=== PATIENT | male | born 1960 | race Caucasian/White ===

== ENCOUNTER 2016-10-04 10:35 | Emergency (ER) | payer BC, OTHER ==
[~2016-10-04] VITALS: Ht 172.7 cm; Wt 113.4 kg
[2016-10-04] MEDS ORDERED: LISI20TA3 PO (10:47)
[2016-10-04] MEDS ORDERED: ATOR1TAB19 PO (10:47)
--- NOTE | 2016-10-04 11:46 | REP ---
RIGHT TIB/FIB SERIES: Four views. HISTORY: Right lower extremity pain. FINDINGS: AP and lateral views of the right tibia and fibula demonstrate plantar and Achilles calcaneal spurring. There are two ossific densities at the posterior joint line at the knee on the lateral radiograph. One of these may be fabella. Question loose body. There is tibiofemoral osteoarthritis and patellofemoral osteoarthritis. There is also some dystrophic soft-tissue calcification at mid calf level medially. No acute bony lesion is seen. IMPRESSION: Question loose body at the knee. Knee joint osteoarthritis. Dystrophic calcification in the medial calf soft tissues. No acute bony abnormality. Signed by Phil Harvey MD 10/04/2016 01:00 P
--- NOTE | 2016-10-04 11:54 | REP ---
Right lower extremity Duplex Doppler venous ultrasound: Real time compression and duplex Doppler interrogation of the right lower extremity deep venous system is performed. The right common femoral, superficial femoral and popliteal veins are fully compressible with transducer pressure and demonstrate normal spontaneous and phasic flow, without evidence of deep venous thrombosis. Impression: No evidence of deep venous thrombosis of the right lower extremity femoral popliteal venous system. Signed by Deon Koch MD 10/04/2016 11:45 A
[2016-10-04] MEDS ORDERED: TYLE325T5 PO (12:12)
[2016-10-04 12:30] VITALS: BP 148/67
== END 2016-10-04 12:36 | disposition home or self-care (01) ==
LOC: M ED 11:14
DX: M17.11 Unilateral primary osteoarthritis, right knee (principal); I10 Essential (primary) hypertension; E78.5 Hyperlipidemia, unspecified; Z79.899 Other long term (current) drug therapy; Z91.011 Allergy to milk products

== ENCOUNTER → 2019-03-09 | Outpatient (REF) | payer OTHER ==
[~2019-03-09] MED LIST: ATOR1TAB19 PO; LISI20TA20 PO; TYLE325T5 PO
[2019-03-09 17:29] LABS: BASO % 0.4 % (0.0-1.0); EOS # 0.1 10^3/uL (0.0-0.5); EOS % 1.9 % (0.0-3.0); HEMATOCRIT 41.9 % (42.0-52.0); HEMOGLOBIN 13.9 g/dl (13.5-17.5); LYMPH # 1.6 10^3/uL (1.5-5.0); LYMPH % 30.5 % (24.0-44.0); MEAN CORPUSCULAR HGB CONC 33.2 g/dl (32.0-36.5); MEAN CORPUSCULAR VOLUME 90.5 fl (80.0-96.0); MONO # 0.4 10^3/uL (0.0-0.8); MONO % 7.6 % (0.0-5.0); NEUTROPHILS # 3.2 10^3/uL (1.5-8.5); NEUTROPHILS % 59.4 % (36.0-66.0); PLATELET COUNT, AUTOMATED 188 10^3/uL (150-450); RED BLOOD COUNT 4.63 10^6/uL (4.30-6.10); WHITE BLOOD COUNT 5.4 10^3/uL (4.0-10.0)
[2019-03-09 17:47] LABS: ALBUMIN 3.5 GM/DL (3.2-5.2); ALT/SGPT 43 U/L (12-78); BILIRUBIN,TOTAL 0.7 MG/DL (0.2-1.0); BLOOD UREA NITROGEN 11 MG/DL (7-18); CALCIUM LEVEL 8.6 MG/DL (8.8-10.2); CARBON DIOXIDE LEVEL 30 MEQ/L (21-32); CHLORIDE LEVEL 106 MEQ/L (98-107); CHOLESTEROL LEVEL 119 MG/DL (<200); CHOLESTEROL RISK RATIO 2.704 (<5); GLOMERULAR FILTRATION RATE > 60.0 (>49); GLUCOSE, FASTING 175 MG/DL (70-100); HDL CHOLESTEROL 44 MG/DL (>40); LDL CHOLESTEROL 61 MG/DL (<100); NON-HDL-C 75 MG/DL; SODIUM LEVEL 141 MEQ/L (136-145); THYROID STIMULATING HORMONE 0.699 uIU/ML (0.358-3.740); TOTAL PROTEIN 6.7 GM/DL (6.4-8.2); TRIGLYCERIDES LEVEL 71 MG/DL (<150)
[2019-03-09 18:06] LABS: MALB URINE SIEMENS 20.7 MG/L
== END ==
LOC: M SFHCLERA 10:04
PROVIDERS: ATTEND Family Medicine
DX: E11.9 Type 2 diabetes mellitus without complications (principal)

== ENCOUNTER → 2019-09-21 | Outpatient (REF) | payer OTHER ==
[2019-09-21 13:22] LABS: BASO % 0.5 % (0.0-1.0); EOS # 0.2 10^3/uL (0.0-0.5); EOS % 2.8 % (0.0-3.0); HEMATOCRIT 42.9 % (42.0-52.0); HEMOGLOBIN 14.7 g/dl (13.5-17.5); LYMPH # 1.6 10^3/uL (1.5-5.0); LYMPH % 26.2 % (24.0-44.0); MEAN CORPUSCULAR HEMOGLOBIN 30.4 pg (27.0-33.0); MEAN CORPUSCULAR HGB CONC 34.3 g/dl (32.0-36.5); MEAN CORPUSCULAR VOLUME 88.8 fl (80.0-96.0); MONO # 0.4 10^3/uL (0.0-0.8); MONO % 7.2 % (0.0-5.0); NEUTROPHILS # 3.8 10^3/uL (1.5-8.5); NEUTROPHILS % 63.1 % (36.0-66.0); PLATELET COUNT, AUTOMATED 211 10^3/uL (150-450); RED BLOOD COUNT 4.83 10^6/uL (4.30-6.10); WHITE BLOOD COUNT 6.1 10^3/uL (4.0-10.0)
[2019-09-21 13:36] LABS: BLOOD UREA NITROGEN 14 MG/DL (7-18); CALCIUM LEVEL 8.8 MG/DL (8.8-10.2); CARBON DIOXIDE LEVEL 29 MEQ/L (21-32); CHLORIDE LEVEL 105 MEQ/L (98-107); CHOLESTEROL LEVEL 200 MG/DL (<200); CHOLESTEROL RISK RATIO 4.545 (<5); CREATININE FOR GFR 0.85 MG/DL (0.70-1.30); GLOMERULAR FILTRATION RATE > 60.0 (>49); GLUCOSE, FASTING 280 MG/DL (70-100); HDL CHOLESTEROL 44 MG/DL (>40); LDL CHOLESTEROL 133 MG/DL (<100); NON-HDL-C 156 MG/DL; POTASSIUM SERUM 4.1 MEQ/L (3.5-5.1); SODIUM LEVEL 140 MEQ/L (136-145); TRIGLYCERIDES LEVEL 115 MG/DL (<150)
[2019-09-21 15:26] LABS: HEMOGLOBIN A1c 8.5 %
== END ==
LOC: M SFHCLERA 10:05
PROVIDERS: ATTEND Family Medicine
DX: E11.9 Type 2 diabetes mellitus without complications (principal); I10 Essential (primary) hypertension; E78.5 Hyperlipidemia, unspecified

== ENCOUNTER → 2019-09-21 | Outpatient (CLI) | payer OTHER ==
--- NOTE | 2019-09-21 11:02 | REPPI ---
LUMBAR SPINE SERIES: FIVE VIEWS. HISTORY: Lumbago. Sciatica. FINDINGS: Lumbar vertebral body heights are preserved. There is diffuse degenerative disc disease with narrowing and discogenic spurring. This is most pronounced at L2-3 but present at each lumbar level. There is no evidence of spondylolysis or spondylolisthesis. There is osteoarthritic facet hypertrophy and sclerosis bilaterally at L5-S1 and to a lesser extent at L4-5. Psoas margins are symmetric. Pedicles and posterior elements are intact. Sacrum and SI joints are unremarkable. There is mild gaseous distension of the colon. IMPRESSION: Degenerative spondylosis changes. No acute bony abnormality. Electronically Signed by Phil Harvey MD 09/21/2019 04:15 P
== END ==
LOC: M PLAIMG 10:02
PROVIDERS: ATTEND Family Medicine
DX: M54.41 Lumbago with sciatica, right side (principal); M47.816 Spondylosis without myelopathy or radiculopathy, lumbar region

== ENCOUNTER → 2020-04-23 | Outpatient (CLI) | payer OTHER ==
[2020-04-23 19:45] LABS: BLOOD UREA NITROGEN 13 MG/DL (7-18); CALCIUM LEVEL 8.7 MG/DL (8.8-10.2); CARBON DIOXIDE LEVEL 31 MEQ/L (21-32); CHLORIDE LEVEL 103 MEQ/L (98-107); CREATININE FOR GFR 0.89 MG/DL (0.70-1.30); GLOMERULAR FILTRATION RATE > 60.0 (>49); GLUCOSE, FASTING 316 MG/DL (70-100); POTASSIUM SERUM 3.9 MEQ/L (3.5-5.1); SODIUM LEVEL 140 MEQ/L (136-145)
== END ==
LOC: M WUC 17:52
PROVIDERS: ATTEND Family Medicine
DX: E11.9 Type 2 diabetes mellitus without complications (principal)

== ENCOUNTER → 2020-08-25 | Outpatient (CLI) | payer OTHER ==
[2020-08-25 11:48] LABS: BLOOD UREA NITROGEN 14 MG/DL (7-18); CALCIUM LEVEL 9.4 MG/DL (8.8-10.2); CARBON DIOXIDE LEVEL 30 MEQ/L (21-32); CHLORIDE LEVEL 102 MEQ/L (98-107); CHOLESTEROL LEVEL 198 MG/DL (<200); CHOLESTEROL RISK RATIO 4.304 (<5); CREATININE FOR GFR 0.81 MG/DL (0.70-1.30); GLOMERULAR FILTRATION RATE > 60.0 (>49); GLUCOSE, FASTING 295 MG/DL (70-100); HDL CHOLESTEROL 46 MG/DL (>40); LDL CHOLESTEROL 112 MG/DL (<100); NON-HDL-C 152 MG/DL; POTASSIUM SERUM 4.2 MEQ/L (3.5-5.1); SODIUM LEVEL 138 MEQ/L (136-145); TRIGLYCERIDES LEVEL 199 MG/DL (<150)
[2020-08-25 11:56] LABS: CREATININE, URINE 66.7 MG/DL; MALB URINE SIEMENS 5.6 MG/L; MAU/CREAT RATIO 8.3 MCG/MG (0.0-30.0)
[2020-08-25 12:07] LABS: HEMOGLOBIN A1c 10.9 %
== END ==
LOC: M WUC 08:19
PROVIDERS: ATTEND Family Medicine
DX: E11.9 Type 2 diabetes mellitus without complications (principal)

== ENCOUNTER → 2021-01-05 | Outpatient (CLI) | payer OTHER ==
[2021-01-05 13:05] LABS: BLOOD UREA NITROGEN 11 MG/DL (7-18); CALCIUM LEVEL 9.1 MG/DL (8.8-10.2); CARBON DIOXIDE LEVEL 31 MEQ/L (21-32); CHLORIDE LEVEL 104 MEQ/L (98-107); CREATININE FOR GFR 0.83 MG/DL (0.70-1.30); GLOMERULAR FILTRATION RATE > 60.0 (>49); GLUCOSE, FASTING 278 MG/DL (70-100); POTASSIUM SERUM 4.2 MEQ/L (3.5-5.1); SODIUM LEVEL 140 MEQ/L (136-145)
[2021-01-05 13:40] LABS: HEMOGLOBIN A1c 9.6 %
== END ==
LOC: M WUC 09:44
PROVIDERS: ATTEND Family Medicine
DX: E11.9 Type 2 diabetes mellitus without complications (principal)

== ENCOUNTER → 2021-12-09 | Outpatient (CLI) | payer OTHER ==
[~2021-12-09] MED LIST changes: -LISI20TA20 PO; +LISI20TA37 PO
[2021-12-09 11:04] LABS: BLOOD UREA NITROGEN 13 MG/DL (7-18); CALCIUM LEVEL 9.2 MG/DL (8.8-10.2); CARBON DIOXIDE LEVEL 32 MEQ/L (21-32); CHLORIDE LEVEL 104 MEQ/L (98-107); CHOLESTEROL LEVEL 176 MG/DL (<200); CHOLESTEROL RISK RATIO 4.292 (<5); CREATININE FOR GFR 0.77 MG/DL (0.70-1.30); GLOMERULAR FILTRATION RATE > 60.0 (>49); GLUCOSE, FASTING 219 MG/DL (70-100); HDL CHOLESTEROL 41 MG/DL (>40); LDL CHOLESTEROL 113 MG/DL (<100); NON-HDL-C 135 MG/DL; POTASSIUM SERUM 4.1 MEQ/L (3.5-5.1); SODIUM LEVEL 140 MEQ/L (136-145); TRIGLYCERIDES LEVEL 111 MG/DL (<150)
[2021-12-09 11:29] LABS: CREATININE, URINE 58.3 MG/DL; CREATININE,RANDOM URINE 58.3 MG/DL; MALB URINE SIEMENS 27.7 MG/L; MAU/CREAT RATIO 47.5 MCG/MG (0.0-30.0)
[2021-12-09 16:56] LABS: HEMOGLOBIN A1c 9.7 %
== END ==
LOC: M WUC 08:37
PROVIDERS: ATTEND Family Medicine
DX: E11.9 Type 2 diabetes mellitus without complications (principal); E78.5 Hyperlipidemia, unspecified

== ENCOUNTER → 2022-10-11 | Outpatient (CLI) | payer OTHER ==
[2022-10-11 11:23] LABS: HEMOGLOBIN A1c 11.1 % (4.0-6.0)
[2022-10-11 11:32] LABS: CREATININE, URINE 54.2 MG/DL
[2022-10-11 11:41] LABS: ALBUMIN 3.6 G/DL (3.2-5.2); ALKALINE PHOSPHATASE 92 U/L (46-116); ALT/SGPT 32 U/L (7.0-40); AST/SGOT 15 U/L (<34); BILIRUBIN,TOTAL 0.7 MG/DL (0.3-1.2); BLOOD UREA NITROGEN 13 MG/DL (9-23); CALCIUM LEVEL 8.9 MG/DL (8.3-10.6); CARBON DIOXIDE LEVEL 30 MMOL/L (20-31); CHLORIDE LEVEL 102 MMOL/L (98-107); CHOLESTEROL LEVEL 193 MG/DL (<200); CHOLESTEROL RISK RATIO 5.03 (<5); CREATININE FOR GFR 0.72 MG/DL (0.70-1.30); GLOMERULAR FILTRATION RATE > 60.0 (>49); GLUCOSE, FASTING 350 MG/DL (74-106); HDL CHOLESTEROL 38.3 MG/DL (>40); LDL CHOLESTEROL 126.5 MG/DL (<100); NON-HDL-C 154.7 MG/DL; POTASSIUM SERUM 4.2 MMOL/L (3.5-5.1); SODIUM LEVEL 137 MMOL/L (136-145); TOTAL PROTEIN 6.5 G/DL (5.7-8.2); TRIGLYCERIDES LEVEL 141 MG/DL (<150)
== END ==
LOC: M WUC 08:41
PROVIDERS: ATTEND Family Medicine
DX: E11.9 Type 2 diabetes mellitus without complications (principal); E78.5 Hyperlipidemia, unspecified

== ENCOUNTER → 2023-05-05 | Outpatient (CLI) | payer OTHER ==
[2023-05-05 17:42] LABS: ALBUMIN 3.7 G/DL (3.2-5.2); ALKALINE PHOSPHATASE 73 U/L (46-116); ALT/SGPT 32 U/L (7.0-40); AST/SGOT 18 U/L (<34); BILIRUBIN,TOTAL 0.6 MG/DL (0.3-1.2); BLOOD UREA NITROGEN 14 MG/DL (9-23); CARBON DIOXIDE LEVEL 30 MMOL/L (20-31); CHLORIDE LEVEL 104 MMOL/L (98-107); CREATININE FOR GFR 0.72 MG/DL (0.70-1.30); GLOMERULAR FILTRATION RATE > 60.0 (>49); GLUCOSE, FASTING 291 MG/DL (74-106); POTASSIUM SERUM 4.2 MMOL/L (3.5-5.1); SODIUM LEVEL 140 MMOL/L (136-145); TOTAL PROTEIN 6.7 G/DL (5.7-8.2)
[2023-05-05 17:43] LABS: HEMOGLOBIN A1c 10.4 % (4.0-6.0)
== END ==
LOC: M WUC 11:02
PROVIDERS: ATTEND Family Medicine
DX: E11.65 Type 2 diabetes mellitus with hyperglycemia (principal)

== ENCOUNTER 2023-09-26 20:45 | Inpatient (IN) | payer MEDICARE, OTHER ==
[~2023-09-26] VITALS: Ht 180.3 cm; Wt 104.1 kg
[2023-09-26] MEDS: ONDANSETRON 4MG 2ML VIAL IV ONE (21:53)
[2023-09-26] MEDS: ACETAMINOPHEN *IV* 1,000 MG in IV 1 EA IV ONE (21:53)
[2023-09-26] MEDS: NS 1,000 ML IV ONE (21:53)
[2023-09-26 22:00] LABS: VENOUS BASE EXCESS 1.7 (-2.0-2.0); VENOUS HCO3 24.4 MMOL/L (23.0-27.0); VENOUS O2 SATURATION 85.1 % (60.0-80.0); VENOUS PARTIAL PRESSURE CO2 32.7 mmHg (38.0-50.0); VENOUS PARTIAL PRESSURE O2 43.8 mmHg (30.0-50.0); VENOUS STANDARD HCO3 25.6 MMOL/L; VENOUS TOTAL CO2 25.4 MMOL/L (24.0-28.0)
[2023-09-26 22:07] LABS: BASO % 0.3 % (0.0-1.0); HEMATOCRIT 41.2 % (42.0-52.0); HEMOGLOBIN 14.2 g/dl (13.5-17.5); LYMPH # 0.2 10^3/uL (1.5-5.0); LYMPH % 1.4 % (24.0-44.0); MEAN CORPUSCULAR HEMOGLOBIN 29.5 pg (27.0-33.0); MEAN CORPUSCULAR HGB CONC 34.5 g/dl (32.0-36.5); MEAN CORPUSCULAR VOLUME 85.7 fl (80.0-96.0); MONO # 0.3 10^3/uL (0.0-0.8); MONO % 2.1 % (2.0-8.0); NEUTROPHILS # 11.3 10^3/uL (1.5-8.5); NEUTROPHILS % 95.6 % (36.0-66.0); PLATELET COUNT, AUTOMATED 159 10^3/uL (150-450); RED BLOOD COUNT 4.81 10^6/uL (4.30-6.10); WHITE BLOOD COUNT 11.9 10^3/uL (4.0-10.0)
[2023-09-26 22:31] LABS: LIPASE 23 U/L (12-53)
[2023-09-26 22:33] LABS: ALBUMIN 3.2 G/DL (3.2-5.2); ALKALINE PHOSPHATASE 56 U/L (46-116); ALT/SGPT 97 U/L (7.0-40); AST/SGOT 136 U/L (<34); BILIRUBIN,DIRECT 0.3 MG/DL (<0.4); BLOOD UREA NITROGEN 16 MG/DL (9-23); CARBON DIOXIDE LEVEL 25 MMOL/L (20-31); CHLORIDE LEVEL 99 MMOL/L (98-107); GLOMERULAR FILTRATION RATE > 60.0 (>49); GLUCOSE, FASTING 362 MG/DL (74-106); POTASSIUM SERUM 3.8 MMOL/L (3.5-5.1); SODIUM LEVEL 132 MMOL/L (136-145); TOTAL PROTEIN 6.1 G/DL (5.7-8.2)
[2023-09-26 22:34] LABS: OSMOLALITY SERUM 295 MOSM/KG (280-301)
[2023-09-26] MEDS ORDERED: CRAN400C PO (23:26)
[2023-09-26] MEDS ORDERED: METO1TAB32 PO (23:26)
[2023-09-26] MEDS ORDERED: METF10004 PO (23:26)
[2023-09-26] MEDS ORDERED: VIT1TAB.12 PO (23:26)
[2023-09-26] MEDS ORDERED: MULT-40 PO (23:26)
[2023-09-26] MEDS ORDERED: IBUP-1764 PO (23:29)
[2023-09-26] MEDS ORDERED: HOME MED LIST COMPLETE! XX SCH (23:30)
[2023-09-26] MEDS: cefTRIAXone SOD 2 GM in D5W MINI-BAG PLUS 50 ML IV ONE (23:40)
[2023-09-26] MEDS: NS 2,070 ML in IV 1 EA IV ONE (23:40)
[2023-09-27] VITALS (7 sets, daily range): BP systolic 106–140; BP diastolic 55–69; TEMP 97.1–98.7; O2SAT 93–96
[2023-09-27] MEDS ORDERED: ACETAMINOPHEN TAB 650MG DOSE (2X325MG) PO PRN
[2023-09-27] MEDS ORDERED: MOM 30ML SUSPENSION UDC PO PRN
[2023-09-27] MEDS ORDERED: GLUCAGON INJ 1MG VIAL SC PRN (00:10)
[2023-09-27] MEDS ORDERED: DEXTROSE 50% 50ML SYRINGE IV PRN (00:10)
[2023-09-27] MEDS ORDERED: GLUCOSE 4 GM CHEW PO PRN (00:10)
[2023-09-27] MEDS: INSULIN LISPRO (NovoLOG) PER UNIT SC ONE (02:29)
[2023-09-27 04:01] LABS: HEMATOCRIT 37.9 % (42.0-52.0); HEMOGLOBIN 12.9 g/dl (13.5-17.5); MEAN CORPUSCULAR HEMOGLOBIN 29.7 pg (27.0-33.0); MEAN CORPUSCULAR VOLUME 87.3 fl (80.0-96.0); PLATELET COUNT, AUTOMATED 143 10^3/uL (150-450); RED BLOOD COUNT 4.34 10^6/uL (4.30-6.10); WHITE BLOOD COUNT 9.5 10^3/uL (4.0-10.0)
[2023-09-27] MEDS: LR 1,000 ML IV SCH (04:37)
[2023-09-27 05:05] LABS: ALBUMIN 2.7 G/DL (3.2-5.2); ALKALINE PHOSPHATASE 46 U/L (46-116); ALT/SGPT 79 U/L (7.0-40); AST/SGOT 77 U/L (<34); BILIRUBIN,TOTAL 0.6 MG/DL (0.3-1.2); BLOOD UREA NITROGEN 12 MG/DL (9-23); CALCIUM LEVEL 8.3 MG/DL (8.3-10.6); CARBON DIOXIDE LEVEL 28 MMOL/L (20-31); CHLORIDE LEVEL 107 MMOL/L (98-107); CREATININE FOR GFR 0.74 MG/DL (0.70-1.30); GLOMERULAR FILTRATION RATE > 60.0 (>49); GLUCOSE, FASTING 270 MG/DL (74-106); MAGNESIUM LEVEL 1.5 MG/DL (1.8-2.4); POTASSIUM SERUM 3.5 MMOL/L (3.5-5.1); SODIUM LEVEL 138 MMOL/L (136-145); TOTAL PROTEIN 5.6 G/DL (5.7-8.2)
[2023-09-27 08:20] LABS: ACETONE/KETONE 0.13 MMOL/L (0.02-0.27)
[2023-09-27 08:26] LABS: HEPATITIS B SURFACE ANTIGEN NEGATIVE (NEGATIVE)
[2023-09-27] MEDS: ENOXAPARIN 40MG/0.4ML SYRINGE (J1650 PER 10MG) SC SCH (08:42)
[2023-09-27] MEDS: MAG SULF 1GM/100ML (MAG RUN) 1 GM in IV 1 EA IV SCH (08:43)
[2023-09-27] MEDS: INSULIN LISPRO (NovoLOG) PER UNIT SC SCH ×2 (08:43→20:14)
[2023-09-27 08:47] LABS: HEPATITIS C VIRUS ABY INDEX < 0.02 INDEX (<0.8)
[2023-09-27 08:48] LABS: HEPATITIS B CORE ANTIBODY IGM NEGATIVE (NEGATIVE)
[2023-09-27] MEDS: LEVEMIR (INSULIN DETEMIR) 1 UNITS/0.01ML SC SCH (10:10)
[2023-09-27] MEDS: cefTRIAXone SOD 1 GM in D5W MINI-BAG PLUS 50 ML IV SCH (23:18)
[2023-09-28 03:19] VITALS: BP 141/73; TEMP 97.7; O2SAT 93
[2023-09-28 06:49] LABS: BASO % 0.4 % (0.0-1.0); EOS # 0.1 10^3/uL (0.0-0.5); HEMOGLOBIN 13.5 g/dl (13.5-17.5); LYMPH # 0.7 10^3/uL (1.5-5.0); LYMPH % 13.9 % (24.0-44.0); MEAN CORPUSCULAR HGB CONC 34.6 g/dl (32.0-36.5); MEAN CORPUSCULAR VOLUME 86.7 fl (80.0-96.0); MONO # 0.3 10^3/uL (0.0-0.8); MONO % 5.1 % (2.0-8.0); NEUTROPHILS # 3.9 10^3/uL (1.5-8.5); NEUTROPHILS % 79.2 % (36.0-66.0); PLATELET COUNT, AUTOMATED 138 10^3/uL (150-450); WHITE BLOOD COUNT 4.9 10^3/uL (4.0-10.0)
[2023-09-28 06:58] LABS: ALBUMIN 2.7 G/DL (3.2-5.2); ALKALINE PHOSPHATASE 61 U/L (46-116); ALT/SGPT 118 U/L (7.0-40); AST/SGOT 93 U/L (<34); BILIRUBIN,TOTAL 0.7 MG/DL (0.3-1.2); BLOOD UREA NITROGEN 10 MG/DL (9-23); CALCIUM LEVEL 8.3 MG/DL (8.3-10.6); CARBON DIOXIDE LEVEL 27 MMOL/L (20-31); CHLORIDE LEVEL 106 MMOL/L (98-107); CREATININE FOR GFR 0.68 MG/DL (0.70-1.30); GLOMERULAR FILTRATION RATE > 60.0 (>49); GLUCOSE, FASTING 141 MG/DL (74-106); MAGNESIUM LEVEL 1.8 MG/DL (1.8-2.4); POTASSIUM SERUM 3.4 MMOL/L (3.5-5.1); SODIUM LEVEL 139 MMOL/L (136-145); TOTAL PROTEIN 5.5 G/DL (5.7-8.2)
[2023-09-28 07:17] VITALS: BP 143/82; TEMP 98.7; O2SAT 91
[2023-09-28 07:53] LABS: PROCALCITONIN 13.24 ng/ml
[2023-09-28 08:11] LABS: ERYTHROCYTE SEDIMENTATION RATE 25 mm/hr (0-20)
[2023-09-28] MEDS: POTASSIUM CHLORIDE 10MEQ SR TABLET PO ONE (09:35)
[2023-09-28] MEDS ORDERED: JANU25TA PO (11:10)
[2023-09-28] MEDS ORDERED: FARX1TAB3 PO (11:10)
[2023-09-28] MEDS ORDERED: CEFD1CAP9 PO (11:10)
[2023-09-28 11:21] VITALS: BP 132/72; TEMP 96.8; O2SAT 9
== END 2023-09-28 12:29 | disposition home or self-care (01) | DRG 872 ==
LOC: M ED 20:45 → M ED INP 23:58 → M PCU 09-27 01:40
PROVIDERS: ADMIT Internal Medicine; ATTEND Student in an Organized Health Care Education/Training Program
DX: A41.9 Sepsis, unspecified organism (principal); N39.0 Urinary tract infection, site not specified; E87.20 Acidosis, unspecified; I10 Essential (primary) hypertension; E78.5 Hyperlipidemia, unspecified; E11.65 Type 2 diabetes mellitus with hyperglycemia; Z79.899 Other long term (current) drug therapy; Z91.011 Allergy to milk products

== ENCOUNTER → 2023-11-09 | Outpatient (CLI) | payer MEDICARE ==
[~2023-11-09] MED LIST changes: +CEFD1CAP9 PO; +CRANBERRY400 MG PO; +FARX1TAB3 PO; +IBUP-1764 PO; +JANU25TA PO; +METF10004 PO; +METO1TAB32 PO; +MULT-40 PO; +VIT1TAB.12 PO
== END ==
LOC: M WUC 15:19
PROVIDERS: ATTEND Nurse Practitioner Family
DX: M25.541 Pain in joints of right hand (principal); W01.10XA Fall on same level from slipping, tripping and stumbling with subsequent striking against unspecified object, initial encounter

== ENCOUNTER → 2023-12-29 | Outpatient (REF) | payer MEDICARE ==
[2023-12-29 18:57] LABS: HEMOGLOBIN A1c 7.7 % (4.0-6.0)
[2023-12-29 19:12] LABS: ALBUMIN 3.7 G/DL (3.2-5.2); ALKALINE PHOSPHATASE 76 U/L (46-116); ALT/SGPT 31 U/L (7.0-40); AST/SGOT 20 U/L (<34); BILIRUBIN,TOTAL 0.6 MG/DL (0.3-1.2); BLOOD UREA NITROGEN 16 MG/DL (9-23); CALCIUM LEVEL 8.9 MG/DL (8.3-10.6); CARBON DIOXIDE LEVEL 27 MMOL/L (20-31); CHLORIDE LEVEL 109 MMOL/L (98-107); CREATININE FOR GFR 0.66 MG/DL (0.70-1.30); GLOMERULAR FILTRATION RATE > 60.0 (>49); GLUCOSE, FASTING 215 MG/DL (74-106); POTASSIUM SERUM 3.9 MMOL/L (3.5-5.1); SODIUM LEVEL 140 MMOL/L (136-145); TOTAL PROTEIN 6.8 G/DL (5.7-8.2)
== END ==
LOC: M SFHCLERA 11:02
PROVIDERS: ATTEND Family Medicine
DX: E11.9 Type 2 diabetes mellitus without complications (principal)

== ENCOUNTER → 2024-05-09 | Outpatient (REF) | payer MEDICARE ==
[2024-05-09 18:43] LABS: HEMOGLOBIN A1c 8.4 % (4.0-6.0)
[2024-05-09 19:07] LABS: BLOOD UREA NITROGEN 16 MG/DL (9-23); CALCIUM LEVEL 9.6 MG/DL (8.3-10.6); CARBON DIOXIDE LEVEL 28 MMOL/L (20-31); CHLORIDE LEVEL 107 MMOL/L (98-107); CREATININE FOR GFR 0.72 MG/DL (0.70-1.30); GLOMERULAR FILTRATION RATE > 60.0 (>49); GLUCOSE, FASTING 158 MG/DL (74-106); POTASSIUM SERUM 4.1 MMOL/L (3.5-5.1); SODIUM LEVEL 142 MMOL/L (136-145)
== END ==
LOC: M SFHCLERA 10:25
PROVIDERS: ATTEND Family Medicine
DX: E11.69 Type 2 diabetes mellitus with other specified complication (principal)

== ENCOUNTER 2024-05-12 17:27 | Emergency (ER) | payer MEDICARE ==
[~2024-05-12] VITALS: Ht 180.3 cm; Wt 109.1 kg
[2024-05-12 20:26] LABS: BASO % 0.4 % (0.0-1.0); EOS # 0.2 10^3/uL (0.0-0.5); HEMATOCRIT 43.3 % (42.0-52.0); HEMOGLOBIN 14.2 g/dl (13.5-17.5); LYMPH # 0.5 10^3/uL (1.5-5.0); LYMPH % 9.9 % (24.0-44.0); MEAN CORPUSCULAR HEMOGLOBIN 28.9 pg (27.0-33.0); MEAN CORPUSCULAR HGB CONC 32.8 g/dl (32.0-36.5); MEAN CORPUSCULAR VOLUME 88.2 fl (80.0-96.0); MONO # 0.5 10^3/uL (0.0-0.8); MONO % 8.6 % (2.0-8.0); NEUTROPHILS # 4.2 10^3/uL (1.5-8.5); NEUTROPHILS % 77.9 % (36.0-66.0); PLATELET COUNT, AUTOMATED 159 10^3/uL (150-450); RED BLOOD COUNT 4.91 10^6/uL (4.30-6.10); WHITE BLOOD COUNT 5.4 10^3/uL (4.0-10.0)
[2024-05-12 20:48] LABS: PROLACTIN 5.21 NG/ML (2.1-17.7); THYROXINE (T4) 4.5 UG/DL (4.5-10.9)
[2024-05-12 20:49] LABS: THYROID STIMULATING HORMONE 0.265 uIU/ML (0.55-4.78)
[2024-05-12 20:58] LABS: ALBUMIN 3.5 G/DL (3.2-5.2); ALKALINE PHOSPHATASE 50 U/L (40-129); ALT/SGPT 25 U/L (7.0-40); AST/SGOT 25 U/L (<34); BILIRUBIN,TOTAL 0.8 MG/DL (0.3-1.2); BLOOD UREA NITROGEN 19 MG/DL (9-23); CALCIUM LEVEL 8.3 MG/DL (8.3-10.6); CARBON DIOXIDE LEVEL 22 MMOL/L (20-31); CHLORIDE LEVEL 102 MMOL/L (98-107); CREATININE FOR GFR 0.74 MG/DL (0.70-1.30); GLOMERULAR FILTRATION RATE > 60.0 (>49); GLUCOSE, FASTING 165 MG/DL (74-106); SODIUM LEVEL 137 MMOL/L (136-145); TOTAL PROTEIN 6.9 G/DL (5.7-8.2)
[2024-05-12 21:00] VITALS: BP 121/68
[2024-05-12 21:15] VITALS: O2SAT 92
[2024-05-12 21:21] LABS: BILIRUBIN,DIRECT 0.2 MG/DL (<0.4)
[2024-05-12] MEDS ORDERED: FREEMIS42 XX (21:42)
[2024-05-12] MEDS ORDERED: glucometer TOP SA (21:42)
[2024-05-12 21:43] VITALS: TEMP 98.2
== END 2024-05-12 21:48 | disposition home or self-care (01) ==
LOC: M ED 17:27
DX: J09.X2 Influenza due to identified novel influenza A virus with other respiratory manifestations (principal); I45.10 Unspecified right bundle-branch block; I45.81 Long QT syndrome; E11.9 Type 2 diabetes mellitus without complications; I10 Essential (primary) hypertension; Z91.011 Allergy to milk products; Z79.2 Long term (current) use of antibiotics; Z79.4 Long term (current) use of insulin; Z79.899 Other long term (current) drug therapy

== ENCOUNTER → 2024-12-14 | Outpatient (CLI) | payer MEDICARE, MEDICAID ==
[~2024-12-14] MED LIST changes: +FREEMIS42 XX; +glucometer TOP SA
== END ==
LOC: M PLAIMG 14:02
PROVIDERS: ATTEND Family Medicine
DX: M47.26 Other spondylosis with radiculopathy, lumbar region (principal); G95.9 Disease of spinal cord, unspecified; M48.061 Spinal stenosis, lumbar region without neurogenic claudication

== ENCOUNTER 2024-12-17 16:15 | Emergency (ER) | payer MEDICARE, MEDICAID ==
[~2024-12-17] VITALS: Ht 180.3 cm; Wt 105.8 kg
[2024-12-17 21:09] VITALS: BP 168/96; TEMP 98.1; O2SAT 97
== END 2024-12-17 21:12 | disposition home or self-care (01) ==
LOC: M ED 17:27
DX: M54.50 Low back pain, unspecified (principal); M48.062 Spinal stenosis, lumbar region with neurogenic claudication; E11.9 Type 2 diabetes mellitus without complications; I10 Essential (primary) hypertension; Z79.2 Long term (current) use of antibiotics; Z79.1 Long term (current) use of non-steroidal anti-inflammatories (NSAID); Z79.4 Long term (current) use of insulin; Z79.899 Other long term (current) drug therapy; Z91.011 Allergy to milk products

== ENCOUNTER → 2025-02-15 | Outpatient (REF) | payer MEDICARE, MEDICAID ==
[2025-02-15 17:30] LABS: ALT/SGPT 23 U/L (7.0-40); AST/SGOT 19 U/L (<34); CALCIUM LEVEL 9.3 MG/DL (8.3-10.6); CARBON DIOXIDE LEVEL 26 MMOL/L (20-31); CHLORIDE LEVEL 107 MMOL/L (98-107); CHOLESTEROL LEVEL 199 MG/DL (<200); CHOLESTEROL RISK RATIO 4.41 (<5); CREATININE FOR GFR 0.68 MG/DL (0.70-1.30); GLOMERULAR FILTRATION RATE > 90.0 (>49); LDL CHOLESTEROL 117.1 MG/DL (<100); NON-HDL-C 153.9 MG/DL; POTASSIUM SERUM 4.3 MMOL/L (3.5-5.1); SODIUM LEVEL 145 MMOL/L (136-145); TRIGLYCERIDES LEVEL 184 MG/DL (<150)
[2025-02-15 17:50] LABS: ESTIMATED AVERAGE GLUCOSE 174.0 MG/DL (60-110)
[2025-02-15 17:53] LABS: BASO # 0.0 10^3/uL (0.0-0.2); BASO % 0.4 % (0.0-1.0); EOS # 0.1 10^3/uL (0.0-0.5); EOS % 1.3 % (0.0-3.0); LYMPH # 1.8 10^3/uL (1.5-5.0); LYMPH % 21.5 % (24.0-44.0); MONO # 0.5 10^3/uL (0.0-0.8); MONO % 5.5 % (2.0-8.0); NEUTROPHILS # 6.0 10^3/uL (1.5-8.5); NEUTROPHILS % 70.9 % (36.0-66.0); PLATELET COUNT, AUTOMATED 245 10^3/uL (150-450)
== END ==
LOC: M SFHCLERA 12:09
PROVIDERS: ATTEND Family Medicine
DX: Z00.00 Encounter for general adult medical examination without abnormal findings (principal); E11.9 Type 2 diabetes mellitus without complications; E78.5 Hyperlipidemia, unspecified